=== PATIENT | female | born 1945 | race Caucasian/White ===

== ENCOUNTER 2017-04-22 20:41 | Emergency (ER) | payer OTHER ==
[~2017-04-22] VITALS: Ht 149.9 cm; Wt 75.2 kg
[2017-04-22 21:22] LABS: MCH 29.4 PG (29.0-34.0); MCHC 33.7 G/DL (30.0-36.0); MCV 87.4 FL (83-99); MEAN PLAT.VOLUME 9.9 uM^3 (9.5-12.4); PLATELET COUNT 167 K/uL (156-360); RBC DIS.WIDTH-SD 41.4 % (39-53); RED BLOOD COUNT 4.35 M/uL (3.80-5.20)
[2017-04-22 21:53] LABS: CHLORIDE 105 mEq/L (99-109); POTASSIUM 3.7 mEq/L (3.7-5.4); SODIUM 137 mEq/L (136-147)
[2017-04-22 21:55] LABS: GLUCOSE 101 mg/dL (70-99)
[2017-04-22 21:56] LABS: ANION GAP 13 MEQ/L (2-14)
[2017-04-22 21:59] LABS: GFR ESTIMATE (CALCULATED) > 59 mL/min/
[2017-04-22 22:00] LABS: UREA NITROGEN (BUN) 21 mg/dL (9-23)
[2017-04-22 22:06] LABS: TROP-I INTERPRETATION NEGATIVE; TROPONIN-I 0.06 ng/mL (0.0-0.30)
[2017-04-22 23:12] VITALS: BP 111/66
== END 2017-04-22 23:16 | disposition home or self-care (01) ==
LOC: EME 20:41
DX: I47.1 Supraventricular tachycardia (principal); K21.9 Gastro-esophageal reflux disease without esophagitis; Z98.61 Coronary angioplasty status; E78.5 Hyperlipidemia, unspecified
CPT/HCPCS: 71020; 80048; 84484; 85027; 93005; 99281; 99284; J0153